=== PATIENT | female | born 1960 | race African-American/Black ===

== ENCOUNTER 2017-07-21 13:06 | Emergency (ER) | payer MEDICARE, MEDICAID ==
[2017-07-21] MEDS ORDERED: ASPIRIN 81 MG TABLET, CHEWABLE PO ONE (14:02)
[2017-07-21 15:29] LABS: ABSOLUTE BASOPHILS # (AUTO) 0.1 10^3/uL (0.0-0.2); ABSOLUTE EOSINOPHILS # (AUTO) 0.1 10^3/uL (0.0-0.6); ABSOLUTE MONOCYTES (AUTO) 0.6 10^3/uL (0.1-1.4); ABSOLUTE NEUT (AUTO) 2.7 10^3/uL (1.7-8.2); BASOPHILS % (AUTO) 1.1 % (0-2); EOSINOPHILS % (AUTO) 1.9 % (0-6); HEMATOCRIT 37.3 % (36.0-47.0); HEMOGLOBIN 12.7 g/dL (12.0-15.5); LYMPHOCYTES % (AUTO) 36.2 % (13-45); MEAN CORPUSCULAR HEMOGLOBIN 32.9 pg (27.0-33.4); MEAN CORPUSCULAR VOLUME 97 fl (80-97); MONOCYTES % (AUTO) 11.6 % (3-13); PLATELET COUNT 212 10^3/uL (150-450); RED BLOOD COUNT 3.86 10^6/uL (3.72-5.28); RED CELL DISTRIBUTION WIDTH 12.9 % (11.5-14.0); SEGMENTED NEUTROPHILS % (AUTO) 49.2 % (42-78); TOTAL CELLS COUNTED % (AUTO) 100 %; WHITE BLOOD COUNT 5.4 10^3/uL (4.0-10.5)
--- NOTE | 2017-07-21 15:37 | ER Document Report ---
ED General - General Chief Complaint: Chest Pain Stated Complaint: CHEST PAIN Time Seen by Provider: 07/21/17 14:02 Mode of Arrival: Ambulatory Information source: Patient Notes: 57-year-old female with a hip history of hypertension, hyperlipidemia presents with complaint of chest pain that started 6 hours prior to arrival. Patient states she is she was sitting at the kitchen table when she began to feel nauseous. She states she took some Pepto-Bismol and shortly after developed right sided chest pain that she describes as sharp, intermittent and associated with lightheadedness. Patient states that she has had a recent illness with fever, cough which has resolved. She denies prior similar symptoms. She is currently asymptomatic and denies headache, nausea, vomiting, chest pain, shortness of breath, abdominal pain, back pain, dysuria, hematuria. She does take aspirin daily. She denies any drug use, alcohol use. She does admit to chewing tobacco. TRAVEL OUTSIDE OF THE [place] IN LAST 30 DAYS: No - HPI Onset: This morning Onset/Duration: Sudden, Intermittent, Gone Quality of pain: Sharp Severity: None Pain Level: Denies Associated symptoms: Chest pain, Nausea Exacerbated by: Denies Relieved by: Denies Similar symptoms previously: Yes Recently seen / treated by doctor: Yes - Related Data Allergies/Adverse Reactions: No Known Allergies Allergy (Unverified 07/21/17 13:07) Past Medical History - General Information source: Patient, [facility]LY [facility] Records - Social History Smoking Status: Never Smoker Chew tobacco use (# tins/day): Yes Frequency of alcohol use: None Drug Abuse: None Lives with: Family Family History: Reviewed & Not Pertinent Patient has suicidal ideation: No Patient has homicidal ideation: No - Past Medical History Cardiac Medical History: Reports: Hx Hypercholesterolemia, Hx Hypertension Endocrine Medical History: Reports: Hx Hyperthyroidism Renal/ Medical History: Denies: Hx Peritoneal Dialysis Past Surgical History: Reports: Hx Hysterectomy - Immunizations Immunizations up to date: Yes Hx Diphtheria, Pertussis, Tetanus Vaccination: Yes Review of Systems - Review of Systems Notes: Currently denies Patient fever, chills, nausea, vomiting, headache, ear pain, sore throat, cough, chest pain, shortness of breath, abdominal pain, back pain, dysuria, hematuria, rash, SI/HI. Patient's chest pain and nausea have resolved. Physical Exam - Vital signs Vitals: Temp Pulse Resp BP Pulse Ox 98.5 F 76 18 113/62 96 07/21/17 13:18 07/21/17 13:18 07/21/17 13:18 07/21/17 13:18 07/21/17 13:18 Interpretation: Normal. No: Hypertensive, Tachypneic - Notes Notes: PHYSICAL EXAMINATION: GENERAL: Well-appearing, well-nourished and in no acute distress. HEAD: Atraumatic, normocephalic. EYES: Pupils equal round and reactive to light, extraocular movements intact, conjunctiva are normal. ENT: Nares patent, oropharynx clear without exudates. Moist mucous membranes. NECK: Normal range of motion, supple without lymphadenopathy LUNGS: Breath sounds clear to auscultation bilaterally and equal. No wheezes rales or rhonchi. HEART: Regular rate and rhythm without murmurs ABDOMEN: Soft, nontender, nondistended abdomen. No guarding, no rebound. No masses appreciated. Female : deferred Musculoskeletal: Normal range of motion, no pitting or edema. No cyanosis. NEUROLOGICAL: Cranial nerves grossly intact. Normal speech, normal gait. Normal sensory, motor exams PSYCH: Normal mood, normal affect. SKIN: Warm, Dry, normal turgor, no rashes or lesions noted. Course - Re-evaluation Re-evalutation: Laboratory 07/21/17 07/21/17 07/21/17 15:06 15:06 15:06 WBC 5.4 RBC 3.86 Hgb 12.7 Hct 37.3 MCV 97 MCH 32.9 MCHC 34.0 RDW 12.9 Plt Count 212 Seg Neutrophils % 49.2 Lymphocytes % 36.2 Monocytes % 11.6 Eosinophils % 1.9 Basophils % 1.1 Absolute Neutrophils 2.7 Absolute Lymphocytes 2.0 Absolute Monocytes 0.6 Absolute Eosinophils 0.1 Absolute Basophils 0.1 Sodium 145.9 H Potassium 3.6 Chloride 104 Carbon Dioxide 29 Anion Gap 13 BUN 9 Creatinine 0.69 Est GFR ( Amer) > 60 Est GFR (Non-Af Amer) > 60 Glucose 96 Calcium 8.9 Total Bilirubin 0.3 Direct Bilirubin 0.3 Neonat Total Bilirubin Not Reportable Neonat Direct Bilirubin Not Reportable Neonat Indirect Bili Not Reportable AST 44 H ALT 71 H Alkaline Phosphatase 102 Creatine Kinase 52 CK-MB (CK-2) < 0.22 Troponin I < 0.012 Total Protein 7.9 Albumin 4.1 07/21/17 17:54 WBC RBC Hgb Hct MCV MCH MCHC RDW Plt Count Seg Neutrophils % Lymphocytes % Monocytes % Eosinophils % Basophils % Absolute Neutrophils Absolute Lymphocytes Absolute Monocytes Absolute Eosinophils Absolute Basophils Sodium Potassium Chloride Carbon Dioxide Anion Gap BUN Creatinine Est GFR ( Amer) Est GFR (Non-Af Amer) Glucose Calcium Total Bilirubin Direct Bilirubin Neonat Total Bilirubin Neonat Direct Bilirubin Neonat Indirect Bili AST ALT Alkaline Phosphatase Creatine Kinase CK-MB (CK-2) Troponin I < 0.012 Total Protein Albumin Chest X-Ray 07/21/17 14:02 IMPRESSION: NO ACUTE RADIOGRAPHIC FINDING IN THE CHEST. 07/21/17 16:32 Heart score-2 for age and risk factors. 07/21/17 18:51 57-year-old female with a hip history of hypertension, hyperlipidemia presents with complaint of chest pain that started 6 hours prior to arrival. Patient states she is she was sitting at the kitchen table when she began to feel nauseous. She states she took some Pepto-Bismol and shortly after developed right sided chest pain that she describes as sharp, intermittent and associated with lightheadedness. Patient states that she has had a recent illness with fever, cough which has resolved. She denies prior similar symptoms. She is currently asymptomatic. Initial cardiac enzymes within normal limits. Delta troponin obtained and within normal limits. Repeat EKG shows patient be in normal sinus rhythm at a rate of 67. Discussed findings with the patient who is comfortable with discharge home and close follow-up with her primary care physician for outpatient stress test. She has remained chest pain-free throughout her ED course. Patient understands that she needs to return to the emergency department if she experiences chest pain again. 07/21/17 18:54 After performing a Medical Screening Examination, I estimate there is LOW risk for RUPTURED ESOPHAGUS, PNEUMOTHORAX, PULMONARY EMBOLISM, ACUTE CORONARY SYNDROME, OR THORACIC AORTIC DISSECTION, thus I consider the discharge disposition reasonable. I have reevaluated this patient multiple times and no significant life threatening changes are noted. The patient and I have discussed the diagnosis and risks, and we agree with discharging home with close follow-up. We also discussed returning to the Emergency Department immediately if new or worsening symptoms occur. We have discussed the symptoms which are most concerning (e.g., bloody sputum, worsening pain or shortness of breath) that necessitate immediate return. 07/22/17 00:05 - Vital Signs Vital signs: Temp Pulse Resp BP Pulse Ox 98.5 F 76 25 H 112/60 98 07/21/17 13:18 07/21/17 13:18 07/21/17 19:01 07/21/17 19:01 07/21/17 19:01 - Laboratory Result Diagrams: 07/21/17 15:06 07/21/17 15:06 Laboratory results interpreted by me: 07/21/17 15:06 Sodium 145.9 H AST 44 H ALT 71 H - Diagnostic Test Radiology reviewed: Image reviewed, Reports reviewed - EKG Interpretation by Me EKG shows normal: Sinus rhythm Rate: Normal Rhythm: NSR Discharge - Discharge Clinical Impression: Chest pain Qualifiers: Chest pain type: unspecified Qualified Code(s): R07.9 - Chest pain, unspecified Condition: Good Disposition: HOME, SELF-CARE Instructions: Chest Pain of Unclear Cause ([facility]) Additional Instructions: Follow up with your physician tomorrow for further care or return to the ED IMMEDIATELY if symptoms worsen or new concerns occur. If you cannot afford to follow up with your primary care physician a list of low cost clinics have been provided at the end of your discharge papers as well. Referrals: JERRY HOSKINS MD [Primary Care Provider] - Follow up in 3-5 days
[2017-07-21 15:46] LABS: ALANINE AMINOTRANSFERASE 71 U/L (9-52); ALBUMIN 4.1 g/dL (3.5-5.0); ALKALINE PHOSPHATASE 102 U/L (38-126); ANION GAP 13 (5-19); ASPARTATE AMINO TRANSFERASE 44 U/L (14-36); BILIRUBIN,DIRECT 0.3 mg/dL (0.0-0.4); BILIRUBIN,TOTAL 0.3 mg/dL (0.2-1.3); BLOOD UREA NITROGEN 9 mg/dL (7-20); CALCIUM 8.9 mg/dL (8.4-10.2); CARBON DIOXIDE 29 mmol/L (22-30); CHLORIDE 104 mmol/L (98-107); CREATINE KINASE 52 U/L (30-135); GLUCOSE 96 mg/dL (75-110); POTASSIUM 3.6 mmol/L (3.6-5.0); SODIUM 145.9 mmol/L (137-145); TOTAL PROTEIN 7.9 g/dL (6.3-8.2)
[2017-07-21 15:58] LABS: CREATINE KINASE MB < 0.22 ng/mL (<4.55); TROPONIN I < 0.012 ng/mL
--- NOTE | 2017-07-21 16:05 | RADIOLOGY REPORT (SQ) ---
EXAM DESCRIPTION: CHEST SINGLE VIEW COMPLETED DATE/TIME: 07/21/2017 3:56 pm REASON FOR STUDY: Chest COMPARISON: None. EXAM PARAMETERS: NUMBER OF VIEWS: One view. TECHNIQUE: Single frontal radiographic view of the chest acquired. RADIATION DOSE: NA LIMITATIONS: None. FINDINGS: LUNGS AND PLEURA: No opacities, masses or pneumothorax. No pleural effusion. MEDIASTINUM AND HILAR STRUCTURES: No masses. Contour normal. HEART AND VASCULAR STRUCTURES: Heart normal in size. Normal vasculature. BONES: No acute findings. HARDWARE: None in the chest. OTHER: No other significant finding. IMPRESSION: NO ACUTE RADIOGRAPHIC FINDING IN THE CHEST. TECHNICAL DOCUMENTATION: JOB ID: [id number] [employer]- All Rights Reserved Reading location - IP/workstation name: [email or web address]
--- NOTE | 2017-07-21 18:23 | EKG REPORT ---
SEVERITY:- ABNORMAL ECG - SINUS RHYTHM : Confirmed by: Kirk Bhat MD 21-Jul-2017 18:22:54
--- NOTE | 2017-07-21 18:23 | EKG REPORT ---
SEVERITY:- NORMAL ECG - SINUS RHYTHM : Confirmed by: Kirk Bhat MD 21-Jul-2017 18:23:02
[2017-07-21 19:04] VITALS: BP 112/60
--- NOTE | 2017-07-22 08:35 | EKG REPORT ---
SEVERITY:- NORMAL ECG - SINUS RHYTHM : Confirmed by: Kirk Bhat MD 22-Jul-2017 08:34:07
== END 2017-07-21 19:04 | disposition home or self-care (01) ==
LOC: ER 13:06
DX: R07.9 Chest pain, unspecified (principal); R11.0 Nausea; E78.00 Pure hypercholesterolemia, unspecified; I10 Essential (primary) hypertension; Z90.710 Acquired absence of both cervix and uterus
CPT/HCPCS: 93005; 99285; 36415; 82553; 82550; 85025; 80053; 84484; 71045; 93010; A9270

== ENCOUNTER 2018-06-07 21:49 | Emergency (ER) | payer MEDICARE, MEDICAID ==
--- NOTE | 2018-06-07 23:01 | ER Document Report ---
ED Medical Screen (RME) - General Chief Complaint: Epigastric Pain Stated Complaint: ABDOMINAL PAIN Time Seen by Provider: 06/07/18 22:42 Primary Care Provider: JERRY HOSKINS MD [Primary Care Provider] - Follow up as needed Notes: Patient is a 57-year-old female who presents the emergency department with a chief complaint of abdominal and chest pain. She states that her abdominal pain is in her epigastric area and it feels like she has gas pains. Her symptoms started at 2130 this evening. She attempted to take some Pepto-Bismol because she had some stomach cramping, but she feels like it made it worse, therefore she came to the emergency department. She also has a past medical history of hypertension hyperlipidemia. She denies any nausea, vomiting, or diarrhea. Exam: S1-S2. Normal rate and rhythm. Clear breath sounds. I have greeted and performed a rapid initial assessment of this patient. A comprehensive ED assessment and evaluation of the patient, analysis of test results and completion of medical decision making process will be conducted by an additional ED providers. TRAVEL OUTSIDE OF THE [place] IN LAST 30 DAYS: No - Related Data Allergies/Adverse Reactions: No Known Allergies Allergy (Verified 06/07/18 21:55) Past Medical History - Past Medical History Cardiac Medical History: Reports: Hx Hypercholesterolemia, Hx Hypertension Endocrine Medical History: Reports: Hx Hyperthyroidism Renal/ Medical History: Denies: Hx Peritoneal Dialysis Past Surgical History: Reports: Hx Hysterectomy - Immunizations Immunizations up to date: Yes Hx Diphtheria, Pertussis, Tetanus Vaccination: Yes Physical Exam - Vital signs Vitals: Temp Pulse Resp BP Pulse Ox 98.4 F 90 18 133/76 H 99 06/07/18 22:08 06/07/18 22:08 06/07/18 22:08 06/07/18 22:08 06/07/18 22:08 Course - Vital Signs Vital signs: Temp Pulse Resp BP Pulse Ox 98.4 F 94 18 133/76 H 99 06/07/18 22:08 06/07/18 22:10 06/07/18 22:08 06/07/18 22:08 06/07/18 22:08 Doctor's Discharge - Discharge Referrals: JERRY HOSKINS MD [Primary Care Provider] - Follow up as needed
--- NOTE | 2018-06-07 23:30 | RADIOLOGY REPORT (SQ) ---
EXAM DESCRIPTION: XR CHEST 2 VIEWS COMPLETED DATE/TME: 06/07/2018 22:59 CLINICAL HISTORY: 57 years Female, chest pain COMPARISON:07/21/2017 NUMBER OF VIEWS/TECHNIQUE: 2, Frontal, Lateral FINDINGS: Adequate lung volume, clear parenchyma, normal cardiac silhouette, and intact bony thorax. IMPRESSION: No acute cardiopulmonary findings.
[2018-06-08 01:07] LABS: ABSOLUTE BASOPHILS # (AUTO) 0.1 10^3/uL (0.0-0.2); ABSOLUTE EOSINOPHILS # (AUTO) 0.1 10^3/uL (0.0-0.6); ABSOLUTE LYMPHOCYTES (AUTO) 2.2 10^3/uL (0.5-4.7); ABSOLUTE MONOCYTES (AUTO) 0.6 10^3/uL (0.1-1.4); ABSOLUTE NEUT (AUTO) 3.3 10^3/uL (1.7-8.2); BASOPHILS % (AUTO) 0.9 % (0-2); EOSINOPHILS % (AUTO) 0.8 % (0-6); HEMATOCRIT 37.8 % (36.0-47.0); LYMPHOCYTES % (AUTO) 35.3 % (13-45); MEAN CORPUSCULAR HEMOGLOBIN 33.8 pg (27.0-33.4); MEAN CORPUSCULAR HGB CONC 34.4 g/dL (32.0-36.0); MEAN CORPUSCULAR VOLUME 98 fl (80-97); MONOCYTES % (AUTO) 9.7 % (3-13); PLATELET COUNT 208 10^3/uL (150-450); RED BLOOD COUNT 3.85 10^6/uL (3.72-5.28); RED CELL DISTRIBUTION WIDTH 12.6 % (11.5-14.0); SEGMENTED NEUTROPHILS % (AUTO) 53.3 % (42-78); TOTAL CELLS COUNTED % (AUTO) 100 %; WHITE BLOOD COUNT 6.2 10^3/uL (4.0-10.5)
[2018-06-08 01:28] LABS: ALANINE AMINOTRANSFERASE 44 U/L (9-52); ALBUMIN 4.7 g/dL (3.5-5.0); ALKALINE PHOSPHATASE 83 U/L (38-126); ANION GAP 10 (5-19); ASPARTATE AMINO TRANSFERASE 37 U/L (14-36); BILIRUBIN,DIRECT 0.1 mg/dL (0.0-0.4); BILIRUBIN,TOTAL 0.6 mg/dL (0.2-1.3); BLOOD UREA NITROGEN 11 mg/dL (7-20); CALCIUM 9.4 mg/dL (8.4-10.2); CARBON DIOXIDE 27 mmol/L (22-30); CHLORIDE 102 mmol/L (98-107); CREATINE KINASE 45 U/L (30-135); GLUCOSE 100 mg/dL (75-110); POTASSIUM 4.1 mmol/L (3.6-5.0); SODIUM 138.5 mmol/L (137-145); TOTAL PROTEIN 8.3 g/dL (6.3-8.2)
[2018-06-08 01:43] LABS: CREATINE KINASE MB < 0.22 ng/mL (<4.55); TROPONIN I < 0.012 ng/mL
[2018-06-08] MEDS ORDERED: ASPIRIN 81 MG TABLET, CHEWABLE PO ONE (01:48)
[2018-06-08] MEDS ORDERED: SUCRALFATE 1 GM TABLET PO ONE (04:53)
[2018-06-08] MEDS ORDERED: FAMOTIDINE 20 MG TABLET PO ONE (04:53)
--- NOTE | 2018-06-08 05:05 | ER Document Report ---
ED General - General Chief Complaint: Epigastric Pain Stated Complaint: ABDOMINAL PAIN Time Seen by Provider: 06/07/18 22:42 Primary Care Provider: JERRY HOSKINS MD [Primary Care Provider] - Follow up in 3-5 days Notes: Patient is a 57-year-old female who presents the emergency department with a chief complaint of abdominal and chest pain. She states that her abdominal pain is in her epigastric area and it feels like she has gas pains. Her symptoms started at 2130 this evening. She attempted to take some Pepto-Bismol because she had some stomach cramping, but she feels like it made it worse, therefore sh e came to the emergency department. She also has a past medical history of hypertension hyperlipidemia. She denies any nausea, vomiting, or diarrhea. TRAVEL OUTSIDE OF THE [place] IN LAST 30 DAYS: No - Related Data Allergies/Adverse Reactions: No Known Allergies Allergy (Verified 06/07/18 21:55) Past Medical History - Social History Smoking Status: Never Smoker Family History: Reviewed & Not Pertinent Patient has suicidal ideation: No Patient has homicidal ideation: No - Past Medical History Cardiac Medical History: Reports: Hx Hypercholesterolemia, Hx Hypertension Endocrine Medical History: Reports: Hx Hyperthyroidism Renal/ Medical History: Denies: Hx Peritoneal Dialysis Past Surgical History: Reports: Hx Hysterectomy - Immunizations Immunizations up to date: Yes Hx Diphtheria, Pertussis, Tetanus Vaccination: Yes Review of Systems - Review of Systems Notes: REVIEW OF SYSTEMS: CONSTITUTIONAL : Denies recent illness. Denies recent unintentional weight loss. Denies fever, chills, or sweats. EENT: Denies eye, ear, throat, or mouth pain, discharge, or symptoms. Denies nasal or sinus congestion. CARDIOVASCULAR: See HPI RESPIRATORY: Denies shortness of breath, cough, congestion, difficulty breathing, or wheezing. GASTROINTESTINAL: See HPI GENITOURINARY: Denies difficulty urinating, burning, blood in urine, urgency or frequency. MUSCULOSKELETAL: Denies neck and back pain. Denies joint pain or swelling. SKIN: Denies rash, itchiness, or lesions HEMATOLOGIC : Denies easy bruising or bleeding. LYMPHATIC: Denies swollen, painful, enlarged glands. NEUROLOGICAL: Denies no numbness or tingling denies weakness. Denies headache. Denies altered mental status. Denies alteration in speech. PSYCHIATRIC: Denies stress, anxiety, alteration in sleep patterns, or depression. All other systems reviewed and negative. Physical Exam - Vital signs Vitals: Temp Pulse Resp BP Pulse Ox 98.4 F 90 18 133/76 H 99 06/07/18 22:08 06/07/18 22:08 06/07/18 22:08 06/07/18 22:08 06/07/18 22:08 - Notes Notes: PHYSICAL EXAMINATION: GENERAL: Appears well, healthy, well-nourished, no acute distress. HEAD: Normocephalic, atraumatic. EYES: PERRL, conjunctiva normal, all extraocular movements intact, sclera nonicteric ENT: Moist mucous membranes. NECK: Supple, no noticeable swelling, redness, rash. Normal range of motion. LUNGS: Equal breath sounds bilaterally and clear to auscultation. No wheezes rales or rhonchi. CARDIOVASCULAR: S1-S2, regular rate, regular rhythm. Radial pulses 2+, normal. ABDOMEN: Normoactive bowel sounds. Soft, nontender, no guarding, no rebound tenderness, and no masses palpated. EXTREMITIES: Normal strength and range of motion, no pitting or edema. No cyanosis. NEUROLOGICAL: Moves all extremities upon command. Strength 5/5 in all extr emities. PSYCH: Normal mood, normal affect. SKIN: Warm, dry. No rash, lesions, ulcerations noted. Normal skin turgor. Course - Re-evaluation Re-evalutation: 06/08/18 05:06 I initially saw the patient in triage. Her second troponin is negative. Chest x-ray is normal. Her chemistries and CBC are unremarkable. She states that she does feel better. I will start her on Carafate, as I suspect the patient has had an exacerbation of her GERD. She states that she is already on medication for GERD, but is unable to tell me what medication. She will be started on Carafate. She is in agreement with this plan. Verbal discharge instructions were given to the patient. They verbalized understanding. They are stable for discharge. - Vital Signs Vital signs: Temp Pulse Resp BP Pulse Ox 98.7 F 78 18 108/58 L 98 06/08/18 05:23 06/08/18 05:23 06/08/18 05:23 06/08/18 05:23 06/08/18 05:23 - Laboratory Result Diagrams: 06/08/18 00:45 06/08/18 00:45 Laboratory results interpreted by me: 06/08/18 06/08/18 00:45 00:45 MCV 98 H MCH 33.8 H AST 37 H Total Protein 8.3 H - EKG Interpretation by Me Additional EKG results interpreted by me: Sinus rhythm. Rate 100. CT 156; QRS 80; QT 356; QTC 460. No ST elevations or depressions. Discharge - Discharge Clinical Impression: Chest pain Qualifiers: Chest pain type: other chest pain Qualified Code(s): R07.89 - Other chest pain Abdominal pain Qualifiers: Abdominal location: unspecified location Qualified Code(s): R10.9 - Unspecified abdominal pain Condition: Stable Disposition: HOME, SELF-CARE Additional Instructions: You were seen today in the emergency abdominal pain and chest pain. Your labs are normal here in the emergency department. Please follow-up with your primary care provider in regards to this visit. You have been given Carafate, medication to help with your stomach. Take it 30 minutes prior to each meal and before bed. If you develop worsening chest pain, shortness of breath, worsening abdominal pain, or have any symptoms that are worrisome to you, please return to the emergency department. Prescriptions: Sucralfate [Carafate 1 gm Tablet] 1 gm PO ACHS #20 tablet Referrals: JERRY HOSKINS MD [Primary Care Provider] - Follow up in 3-5 days
[2018-06-08 05:24] VITALS: BP 108/58
--- NOTE | 2018-06-08 07:58 | EKG REPORT ---
SEVERITY:- OTHERWISE NORMAL ECG - SINUS TACHYCARDIA : Confirmed by: Kirk Bhat MD 08-Jun-2018 07:58:16
== END 2018-06-08 05:24 | disposition home or self-care (01) ==
LOC: ER 21:49
DX: R07.89 Other chest pain (principal); R10.13 Epigastric pain; I10 Essential (primary) hypertension; E78.00 Pure hypercholesterolemia, unspecified; Z90.710 Acquired absence of both cervix and uterus
CPT/HCPCS: 93005; 99284; 36415; 82553; 82550; 85025; 80053; 84484; 71046; 93010; A9270 ×3

== ENCOUNTER 2018-08-22 09:43 | Emergency (ER) | payer MEDICARE, MEDICAID ==
[2018-08-22] MEDS ORDERED: IBUPROFEN 800 MG TABLET PO ONE (11:13)
[2018-08-22] MEDS ORDERED: CYCLOBENZAPRINE HCL 10 MG TABLET PO ONE (11:13)
--- NOTE | 2018-08-22 11:15 | ER Document Report ---
ED Medical Screen (RME) - General Chief Complaint: Leg Pain Stated Complaint: LEG PAIN Time Seen by Provider: 08/22/18 11:07 Primary Care Provider: JERRY HOSKINS MD [Primary Care Provider] - Follow up as needed Mode of Arrival: Medic Notes: Patient presents to the emergency department with complaints of right lower leg cramps. Patient is difficult to obtain history. She is asking for pain medication. Patient reports this happened to her before and she thinks she was put on blood thinners for it. Denies trauma. No obvious erythema swelling or warmth to her leg. Negative Pj. Doppler ordered because patient reports she thinks she was put on blood thinners before in the past for this. I have greeted and performed a rapid initial assessment of this patient. A comprehensive ED assessment and evaluation of the patient, analysis of test results and completion of the medical decision making process will be conducted by additional ED providers. Dictation of this chart was performed using voice recognition software; therefore, there may be some unintended grammatical errors. TRAVEL OUTSIDE OF THE [place] IN LAST 30 DAYS: No - Related Data Allergies/Adverse Reactions: No Known Allergies Allergy (Verified 08/22/18 09:49) Past Medical History - Past Medical History Cardiac Medical History: Reports: Hx Hypercholesterolemia, Hx Hypertension Endocrine Medical History: Reports: Hx Hyperthyroidism Renal/ Medical History: Denies: Hx Peritoneal Dialysis Past Surgical History: Reports: Hx Hysterectomy - Immunizations Immunizations up to date: Yes Hx Diphtheria, Pertussis, Tetanus Vaccination: Yes Physical Exam - Vital signs Vitals: Temp Pulse Resp BP Pulse Ox 98.0 F 69 16 115/61 97 08/22/18 10:08/22/18 10:08/22/18 10:08/22/18 10:08/22/18 10:09 Course - Vital Signs Vital signs: Temp Pulse Resp BP Pulse Ox 98.0 F 69 16 115/61 97 08/22/18 10:08/22/18 10:08/22/18 10:08/22/18 10:08/22/18 10:09 Doctor's Discharge - Discharge Referrals: JERRY HOSKINS MD [Primary Care Provider] - Follow up as needed
[2018-08-22 11:35] LABS: ABSOLUTE EOSINOPHILS # (AUTO) 0.1 10^3/uL (0.0-0.6); ABSOLUTE LYMPHOCYTES (AUTO) 1.3 10^3/uL (0.5-4.7); ABSOLUTE MONOCYTES (AUTO) 0.5 10^3/uL (0.1-1.4); ABSOLUTE NEUT (AUTO) 1.8 10^3/uL (1.7-8.2); BASOPHILS % (AUTO) 1.1 % (0-2); EOSINOPHILS % (AUTO) 1.4 % (0-6); HEMATOCRIT 39.2 % (36.0-47.0); HEMOGLOBIN 13.3 g/dL (12.0-15.5); LYMPHOCYTES % (AUTO) 35.7 % (13-45); MEAN CORPUSCULAR HEMOGLOBIN 33.5 pg (27.0-33.4); MEAN CORPUSCULAR HGB CONC 33.9 g/dL (32.0-36.0); MEAN CORPUSCULAR VOLUME 99 fl (80-97); MONOCYTES % (AUTO) 12.2 % (3-13); PLATELET COUNT 203 10^3/uL (150-450); RED BLOOD COUNT 3.97 10^6/uL (3.72-5.28); RED CELL DISTRIBUTION WIDTH 12.4 % (11.5-14.0); SEGMENTED NEUTROPHILS % (AUTO) 49.6 % (42-78); TOTAL CELLS COUNTED % (AUTO) 100 %; WHITE BLOOD COUNT 3.7 10^3/uL (4.0-10.5)
[2018-08-22 11:47] LABS: INTERNATIONAL RATION (INR) 0.93; PROTHROMBIN TIME 12.9 SEC (11.4-15.4)
[2018-08-22 11:48] LABS: PARTIAL THROMBOPLASTIN TIME 33.3 SEC (23.5-35.8)
[2018-08-22 12:01] LABS: ALANINE AMINOTRANSFERASE 34 U/L (9-52); ALBUMIN 4.5 g/dL (3.5-5.0); ALKALINE PHOSPHATASE 80 U/L (38-126); ANION GAP 11 (5-19); ASPARTATE AMINO TRANSFERASE 39 U/L (14-36); BILIRUBIN,DIRECT 0.2 mg/dL (0.0-0.4); BILIRUBIN,TOTAL 0.8 mg/dL (0.2-1.3); BLOOD UREA NITROGEN 10 mg/dL (7-20); CALCIUM 9.3 mg/dL (8.4-10.2); CARBON DIOXIDE 26 mmol/L (22-30); CHLORIDE 103 mmol/L (98-107); GLUCOSE 103 mg/dL (75-110); POTASSIUM 4.4 mmol/L (3.6-5.0); SODIUM 140.3 mmol/L (137-145); TOTAL PROTEIN 8.4 g/dL (6.3-8.2)
--- NOTE | 2018-08-22 12:16 | ER Document Report ---
ED General - General Chief Complaint: Leg Pain Stated Complaint: LEG PAIN Time Seen by Provider: 08/22/18 11:07 Primary Care Provider: JERRY HOSKINS MD [Primary Care Provider] - Follow up in 1 week Mode of Arrival: Medic Information source: Patient Notes: Patient presents emergency department with complaints of right lower leg pain. Patient reports cramps that started this morning. Denies trauma. Denies fever vomiting diarrhea. Denies recent long trip. Patient mumbles something about she believes she was put on blood thinners for this in the past. Asking for something for pain, has not taken anything for pain today. TRAVEL OUTSIDE OF THE [place] IN LAST 30 DAYS: No - HPI Onset: This morning Onset/Duration: Sudden Quality of pain: Cramping Severity: Moderate Pain Level: 3 Associated symptoms: None Exacerbated by: Denies Relieved by: Denies Similar symptoms previously: Yes Recently seen / treated by doctor: No - Related Data Allergies/Adverse Reactions: No Known Allergies Allergy (Verified 08/22/18 09:49) Past Medical History - General Information source: Patient - Social History Smoking Status: Never Smoker Chew tobacco use (# tins/day): No Frequency of alcohol use: None Drug Abuse: None Family History: Reviewed & Not Pertinent Patient has suicidal ideation: No Patient has homicidal ideation: No - Past Medical History Cardiac Medical History: Reports: Hx Hypercholesterolemia, Hx Hypertension Denies: Hx DVT, Hx Pulmonary Embolism Endocrine Medical History: Reports: Hx Hyperthyroidism Renal/ Medical History: Denies: Hx Peritoneal Dialysis Past Surgical History: Reports: Hx Hysterectomy - Immunizations Immunizations up to date: Yes Hx Diphtheria, Pertussis, Tetanus Vaccination: Yes Review of Systems - Review of Systems Notes: Review HPI for review of systems., All other systems negative Physical Exam - Vital signs Vitals: Temp Pulse Resp BP Pulse Ox 98.0 F 69 16 115/61 97 08/22/18 10:09 08/22/18 10:09 08/22/18 10:09 08/22/18 10:09 08/22/18 10:09 - Notes Notes: PHYSICAL EXAMINATION: GENERAL: Well-appearing HEAD: Atraumatic, normocephalic. EYES: Pupils equal round , extraocular movements intact, sclera anicteric, conjunctiva are normal. ENT: nares patent, Moist mucous membranes. NECK: Normal range of motion, supple LUNGS: Respiratory rate even unlabored HEART: Regular rate ABDOMEN: Soft, no tenderness. No guarding, no rebound EXTREMITIES: Normal range of motion, no pitting edema. No cyanosis, no erythema/swelling, negative homans. NEUROLOGICAL: Cranial nerves grossly intact. PSYCH: Normal mood, normal affect. SKIN: Warm, Dry, normal turgor, no rashes or lesions noted Course - Re-evaluation Re-evalutation: 08/22/18 Labs unremarkable Doppler negative for DVT. Patient sleeping soundly upon return to give discharge information. Patient instructed on Motrin encouraged to push fluids follow-up with her provider for leg cramps. She verbalized understanding. Dictation of this chart was performed using voice recognition software; therefore, there may be some unintended grammatical errors. - Vital Signs Vital signs: Temp Pulse Resp BP Pulse Ox 98.0 F 75 16 110/60 98 08/22/18 10:09 08/22/18 12:47 08/22/18 12:47 08/22/18 12:47 08/22/18 12:47 - Laboratory Result Diagrams: 08/22/18 11:30 08/22/18 11:30 Laboratory results interpreted by me: 08/22/18 08/22/18 11:30 11:30 WBC 3.7 L MCV 99 H MCH 33.5 H AST 39 H Total Protein 8.4 H - Diagnostic Test Radiology reviewed: Image reviewed, Reports reviewed - EXAM DESCRIPTION: VENOUS UNILATERAL LOWER COMPLETED DATE/TIME: 08/22/2018 12:09 pm REASON FOR STUDY: rll pain COMPARISON: None. TECHNIQUE: Dynamic and static santiago scale and color images acquired of the right leg venous system. Selected spectral images acquired with additional compression and augmentation maneuvers. The contralateral common femoral vein and saphenofemoral junction were also imaged. Images stored on PACS. LIMITATIONS: None. FINDINGS: COMMON FEMORAL: Normal phasicity, compression and augmentation. No visualized echogenic material on santiago scale. No defects on color images. FEMORAL: Normal compression and au gmentation. No visualized echogenic material on santiago scale. No defects on color images. POPLITEAL: Normal compression, augmentation. No visualized echogenic material on santiago scale. No defects on color images. CALF VESSELS: Normal compression, augmentation. No visualized echogenic material on santiago scale. No defects on color images. GSV and SSV: Normal compression, augmentation. No visualized echogenic material on santiago scale. No defects on color images. ANY DEEP VENOUS INSUFFICIENCY: Not evaluated. ANY EVIDENCE OF POPLITEAL CYST: No. OTHER: No other significant finding. CONTRALATERAL COMMON FEMORAL VEIN AND SAPHENOFEMORAL JUNCTION: Normal phasicity, compression and augmentation. No visualized echogenic material on santiago scale. No defects on color images. IMPRESSION: NO EVIDENCE DVT OR SVT IN THE RIGHT LEG. Discharge - Discharge Clinical Impression: Leg cramps Condition: Stable Disposition: HOME, SELF-CARE Instructions: Use of [id number] Ibuprofen ([facility]), Leg Cramps ([facility]) Additional Instructions: *You have been evaluated for leg cramps *Drink lots of water, stretch *Follow up with your primary care provider within 1 week *Return to ED for worsening condition, changes, needs Referrals: JERRY HOSKINS MD [Primary Care Provider] - Follow up in 1 week
--- NOTE | 2018-08-22 12:17 | RADIOLOGY REPORT (SQ) ---
EXAM DESCRIPTION: VENOUS UNILATERAL LOWER COMPLETED DATE/TIME: 08/22/2018 12:09 pm REASON FOR STUDY: rll pain COMPARISON: None. TECHNIQUE: Dynamic and static santiago scale and color images acquired of the right leg venous system. S elected spectral images acquired with additional compression and augmentation maneuvers. The contrala teral common femoral vein and saphenofemoral junction were also imaged. Images stored on PACS. LIMITATIONS: None. FINDINGS: COMMON FEMORAL: Normal phasicity, compression and augmentation. No visualized echogenic ma terial on santiago scale. No defects on color images. FEMORAL: Normal compression and augmentation. No visualized echogenic material on santiago scale. No defe cts on color images. POPLITEAL: Normal compression, augmentation. No visualized echogenic material on santiago scale. No defec ts on color images. CALF VESSELS: Normal compression, augmentation. No visualized echogenic material on santiago scale. No de fects on color images. GSV and SSV: Normal compression, augmentation. No visualized echogenic material on santiago scale. No def ects on color images. ANY DEEP VENOUS INSUFFICIENCY: Not evaluated. ANY EVIDENCE OF POPLITEAL CYST: No. OTHER: No other significant finding. CONTRALATERAL COMMON FEMORAL VEIN AND SAPHENOFEMORAL JUNCTION: Normal phasicity, compression and augmentation. No visualized echogenic material on santiago scale. No de fects on color images. IMPRESSION: NO EVIDENCE DVT OR SVT IN THE RIGHT LEG. TECHNICAL DOCUMENTATION: JOB ID: [id number] [employer]- All Rights Reserved Reading location - IP/workstation name: [email or web address]
[2018-08-22 12:49] VITALS: BP 110/60
== END 2018-08-22 12:48 | disposition home or self-care (01) ==
LOC: ER 09:43
DX: R25.2 Cramp and spasm (principal); M79.661 Pain in right lower leg; I10 Essential (primary) hypertension
CPT/HCPCS: 99284; 36415; 85025; 85610; 85730; 80053; 93971; A9270 ×2

== ENCOUNTER 2018-12-17 07:40 | Emergency (ER) | payer MEDICARE, MEDICAID ==
[2018-12-17 08:27] LABS: ABSOLUTE EOSINOPHILS # (AUTO) 0.1 10^3/uL (0.0-0.6); ABSOLUTE LYMPHOCYTES (AUTO) 1.6 10^3/uL (0.5-4.7); ABSOLUTE MONOCYTES (AUTO) 0.4 10^3/uL (0.1-1.4); BASOPHILS % (AUTO) 0.5 % (0-2); EOSINOPHILS % (AUTO) 1.2 % (0-6); HEMATOCRIT 35.4 % (36.0-47.0); HEMOGLOBIN 12.3 g/dL (12.0-15.5); LYMPHOCYTES % (AUTO) 30.9 % (13-45); MEAN CORPUSCULAR HEMOGLOBIN 34.3 pg (27.0-33.4); MEAN CORPUSCULAR HGB CONC 34.8 g/dL (32.0-36.0); MEAN CORPUSCULAR VOLUME 98 fl (80-97); MONOCYTES % (AUTO) 8.6 % (3-13); PLATELET COUNT 189 10^3/uL (150-450); RED CELL DISTRIBUTION WIDTH 12.5 % (11.5-14.0); SEGMENTED NEUTROPHILS % (AUTO) 58.8 % (42-78); TOTAL CELLS COUNTED % (AUTO) 100 %; WHITE BLOOD COUNT 5.1 10^3/uL (4.0-10.5)
[2018-12-17] MEDS ORDERED: DICYCLOMINE HCL 20 MG TABLET PO ONE (08:27)
--- NOTE | 2018-12-17 08:28 | ER Document Report ---
ED General - General Chief Complaint: Abdominal Pain Stated Complaint: ABDOMINAL PAIN Time Seen by Provider: 12/17/18 08:15 Primary Care Provider: MERRILL CABRAL MD [ACTIVE STAFF] - Follow up in 3-5 days JERRY HOSKINS MD [Primary Care Provider] - 12/20/18 TRAVEL OUTSIDE OF THE [place] IN LAST 30 DAYS: No - HPI Notes: Patient is a 58-year-old female with a history of hypertension and hysterectomy who presents complaining of intermittent abdominal cramping and diarrhea when she has to have a bowel movement that is been ongoing since she had hemorrhoid surgery last spring. Patient states that the pain has been the same over this course of time without any changes. She has been seen by her cafe team member for follow-up because of her intermittent abdominal cramping and diarrhea. Patient states that is primarily watery and some loose stool without melena or hematochezia. Patient currently does not have any symptoms. She is urinating normally. No recent illness. She has not been on any antibiotics recently. No distance travel. Denies any headache, fever, neck pain, URI, sore throat, chest pain, palpitations, syncope, cough, shortness of breath, wheeze, dyspnea, nausea/vomiting, urinary retention, dysuria, hematuria, or rash. - Related Data Allergies/Adverse Reactions: No Known Allergies Allergy (Verified 12/17/18 07:48) Past Medical History - Social History Smoking Status: Never Smoker Chew tobacco use (# tins/day): No Frequency of alcohol use: None Drug Abuse: None Family History: Reviewed & Not Pertinent Patient has suicidal ideation: No Patient has homicidal ideation: No - Past Medical History Cardiac Medical History: Reports: Hx Hypercholesterolemia, Hx Hypertension Denies: Hx DVT, Hx Pulmonary Embolism Endocrine Medical History: Reports: Hx Hyperthyroidism Renal/ Medical History: Denies: Hx Peritoneal Dialysis Past Surgical History: Reports: Hx Hysterectomy, Hx Rectal Surgery - Hemorrhoid in 2019 - Immunizations Immunizations up to date: Yes Hx Diphtheria, Pertussis, Tetanus Vaccination: Yes Review of Systems - Review of Systems -: Yes All other systems reviewed and negative Physical Exam - Vital signs Vitals: Temp Pulse Resp BP Pulse Ox 97.7 F 77 14 122/57 L 98 12/17/18 07:50 12/17/18 07:50 12/17/18 07:50 12/17/18 07:50 12/17/18 07:50 - Notes Notes: PHYSICAL EXAMINATION: GENERAL: Well-appearing, well-nourished and in no acute distress. HEAD: Atraumatic, normocephalic. EYES: Pupils equal round and reactive to light, extraocular movements intact, sclera anicteric, conjunctiva are normal. ENT: Nares patent and without discharge. oropharynx clear without exudates. No tonsilar hypertrophy or erythema. Moist mucous membranes. NECK: Normal range of motion, supple without lymphadenopathy LUNGS: Breath sounds clear to auscultation bilaterally and equal. No wheezes rales or rhonchi. HEART: Regular rate and rhythm without murmurs, rubs, gallops. ABDOMEN: Soft, nontender, nondistended abdomen. No guarding, no rebound. Normal bowel sounds present. No CVA tenderness bilaterally. [place] negative. No tenderness at [place] point Musculoskeletal: FROM to passive/active. Strength 5+/5. Extremities: No cyanosis, clubbing, or edema b/l. Peripheral pulses 2+. C apillary refill less than 3 seconds. NEUROLOGICAL: Normal speech, normal gait. PSYCH: Normal mood, normal affect. SKIN: Warm, Dry, normal turgor, no rashes or lesions noted. Course - Re-evaluation Re-evalutation: 12/17/18 08:31 Patient is currently nontoxic-appearing and presents with acute on chronic abdominal issues. Abdomen is soft and nontender throughout. We will give her Bentyl, check labs, reassess. 12/17/18 09:25 Patient is an afebrile, well-hydrated, 58-year-old female who presents with intermittent nonspecific abdominal pain and diarrhea, unspecified, but chronic in nature. Vitals are acceptable without significant tachycardia, tachypnea, or hypoxia. PE is otherwise unremarkable. Patient's abdomen is soft and nontender. She is nontoxic-appearing and is tolerating p.o. without difficulty. Labs are unremarkable. No further work-up warranted at this time. Patient has not had any chest pain, shortness of breath, or dyspnea on exertion. Patient describes having this discomfort for almost every bowel movement that she has since her hemorrhoid surgery last spring without any acute changes. Low s uspicion/risk for acute appendicitis, bowel obstruction, acute cholecystitis, acute cholangitis, perforated diverticulitis, incarcerated hernia, pancreatitis, perforated ulcer, peritonitis, sepsis, pelvic inflammatory disease, ectopic , tubo-ovarian abscess, ovarian torsion, or other systemic emergent condition at this time. Patient is aware that her condition can change from initial presentation and she needs to monitor symptoms closely and seek medical attention if any acute changes. Conservative measures otherwise for symptoms. Recheck with your PCM in 2-3 days. Schedule follow-up with your cafe team member. Return to the ED with any worsening/concerning symptoms otherwise as reviewed in discharge. Patient is in agreement. - Vital Signs Vital signs: Temp Pulse Resp BP Pulse Ox 97.7 F 77 14 122/57 L 98 12/17/18 07:50 12/17/18 07:50 12/17/18 07:50 12/17/18 07:50 12/17/18 07:50 - Laboratory Result Diagrams: 12/17/18 08:10 12/17/18 08:10 Laboratory results interpreted by me: 12/17/18 12/17/18 08:10 08:10 RBC 3.60 L Hct 35.4 L MCV 98 H MCH 34.3 H AST 40 H Discharge - Discharge Clinical Impression: Nonspecific abdominal pain Diarrhea Qualifiers: Diarrhea type: unspecified type Qualified Code(s): R19.7 - Diarrhea, unspecified Condition: Stable Disposition: HOME, SELF-CARE Instructions: Abdominal Pain ([facility]), Diarrhea, Nonspecific ([facility]) Additional Instructions: Maintain adequate fluid and food intake tylenol if needed Monitor for any worsening symptoms Make sure you are staying hydrated enough to urinate and have normal BM's Recheck with your PCM in 2-3 days Schedule follow-up with your cafe team member Return to the ED with any worsening symptoms and/or development of fever, headache, chest pain, palpitations, syncope, shortness of breath, trouble breathing, abdominal pain, n/v/d, blood in stool/urine, weakness, or other worsening symptoms that are concerning to you. Prescriptions: Dicyclomine HCl [Bentyl 20 mg Tablet] 20 mg PO BID #10 tablet Referrals: JERRY HOSKINS MD [Primary Care Provider] - 12/20/18 MERRILL CABRAL MD [ACTIVE STAFF] - Follow up in 3-5 days
[2018-12-17 08:49] LABS: ALBUMIN 4.3 g/dL (3.5-5.0); ALKALINE PHOSPHATASE 82 U/L (38-126); ANION GAP 10 (5-19); ASPARTATE AMINO TRANSFERASE 40 U/L (14-36); BILIRUBIN,TOTAL 0.6 mg/dL (0.2-1.3); BLOOD UREA NITROGEN 16 mg/dL (7-20); CALCIUM 9.2 mg/dL (8.4-10.2); CARBON DIOXIDE 26 mmol/L (22-30); CHLORIDE 103 mmol/L (98-107); GLUCOSE 88 mg/dL (75-110); POTASSIUM 4.2 mmol/L (3.6-5.0); TOTAL PROTEIN 7.9 g/dL (6.3-8.2)
[2018-12-17 09:09] LABS: APPEARANCE,URINE CLEAR; BILIRUBIN,URINE NEGATIVE (NEGATIVE); COLOR,URINE STRAW; GLUCOSE, URINE NEGATIVE (NEGATIVE); KETONES,URINE NEGATIVE (NEGATIVE); LEUKOCYTE ESTERASE,URINE NEGATIVE (NEGATIVE); NITRITE,URINE NEGATIVE (NEGATIVE); PROTEIN,URINE NEGATIVE (NEGATIVE); URINE SPECIFIC GRAVITY 1.004; UROBILINOGEN,URINE NEGATIVE mg/dL (<2.0)
[2018-12-17 09:47] VITALS: BP 97/52
== END 2018-12-17 09:47 | disposition home or self-care (01) ==
LOC: ER 07:40
DX: R10.9 Unspecified abdominal pain (principal); R19.7 Diarrhea, unspecified; I10 Essential (primary) hypertension
CPT/HCPCS: 99284; 36415; 83690; 85025; 80053; 81001; A9270; J3490